=== PATIENT | female | born 1965 | race Caucasian/White ===

== ENCOUNTER → 2024-03-17 07:01 | Outpatient (REF) | payer OTHER, SELFPAY | LOC: RAD 07:01 | PROVIDERS: ATTENDING PHYSICIAN Family Medicine | DX: R74.8 Abnormal levels of other serum enzymes (principal) | CPT/HCPCS: 76700 ==

== ENCOUNTER → 2024-03-24 07:38 | Outpatient (REF) | payer OTHER, SELFPAY | LOC: WDC 07:38 | PROVIDERS: ATTENDING PHYSICIAN Obstetrics & Gynecology Gynecology; FAMILY PHYSICIAN Family Medicine | DX: Z12.31 Encounter for screening mammogram for malignant neoplasm of breast (principal) | CPT/HCPCS: 77063; 77067 ==

== ENCOUNTER → 2024-03-31 08:36 | Outpatient (REF) | payer OTHER, SELFPAY | LOC: WDC 08:36 | PROVIDERS: ATTENDING PHYSICIAN Obstetrics & Gynecology Gynecology; FAMILY PHYSICIAN Family Medicine | DX: R92.8 Other abnormal and inconclusive findings on diagnostic imaging of breast (principal) | CPT/HCPCS: 77065 ==

== ENCOUNTER → 2024-04-09 06:30 | Outpatient (REF) | payer OTHER, SELFPAY ==
--- NOTE | 2024-04-09 11:03 | OID.BR.INTR ---
[facility] Breast Navigator - Initial
- -
Date of Contact: 04/09/24
Met with patient. Patient given written information on navigator services and support services available at [facility]. Will follow up as needed per protocol.
== END ==
LOC: WDC 06:30
PROVIDERS: ATTENDING PHYSICIAN Obstetrics & Gynecology Gynecology; FAMILY PHYSICIAN Family Medicine
DX: N63.20 Unspecified lump in the left breast, unspecified quadrant (principal); R92.1 Mammographic calcification found on diagnostic imaging of breast
CPT/HCPCS: 88305; 19081; 76098; A4648

== ENCOUNTER → 2024-05-10 09:44 | Outpatient (REF) | payer OTHER, SELFPAY | LOC: WDC 09:44 | PROVIDERS: ATTENDING PHYSICIAN Surgery | DX: D05.02 Lobular carcinoma in situ of left breast (principal) | CPT/HCPCS: 19281; A4648 ==

== ENCOUNTER 2024-05-11 06:48 | Day surgery (SDC) | payer OTHER, SELFPAY ==
[2024-04-29 08:48] LABS: Hematocrit 39.5 % (37.0-47.0); Hemoglobin 13.5 g/dL (12.0-16.0); Mean Corp Hgb Conc. 34.2 g/dL (33.0-37.0); Mean Corpuscular Hgb 30.5 pg (27.0-31.0); Mean Corpuscular Volume 89.4 fL (81.0-99.0); Mean Platelet Volume 11.1 fL (7.4-10.4); Platelet Count 151 10^3/uL (130-400); Red Blood Cell Count 4.42 10^6/uL (4.20-5.40); Red Cell Dist. Width 11.9 % (11.5-14.5); White Blood Cell Count 2.9 10^3/uL (4.8-10.8)
[2024-04-29 09:20] LABS: ALT (SGPT) 52 U/L (0-35); AST (SGOT) 43 U/L (14-36); Albumin 4.3 g/dl (3.5-5.0); Alkaline Phosphatase 62 U/L (38-126); Blood Urea Nitrogen 10 mg/dl (7-17); Calcium 9.6 mg/dl (8.4-10.2); Carbon Dioxide 29 mmol/L (22-30); Chloride 100 mmol/L (98-107); Glucose 87 mg/dl (70-99); Potassium 4.4 mmol/L (3.5-5.1); Sodium 136 mmol/L (135-145); Total Bilirubin 0.6 mg/dl (0.2-1.3); Total Protein 6.3 g/dl (6.3-8.2); eGFR > 60.00
[2024-04-29 09:24] LABS: Prealbumin (Transthyretin) 24.1 mg/dl (17.6-36.0)
[2024-04-29 09:37] LABS: Vitamin D, 25-OH*** 61.1 ng/mL (30-80)
[2024-04-29 10:33] VITALS: BMI 20.2
--- NOTE | 2024-04-30 08:14 | PTCARENOTE ---
Patients 04/29 WBC 2.9Darcy Naik @ Dr. aPrker office notified
[2024-05-11 09:40] VITALS: BP 101/59
[2024-05-11] MEDS: NORMOSOL-R 1000 IV (09:50)
[2024-05-11] MEDS: TYLENOL 1000 MG PO (10:00)
[2024-05-11 10:03] VITALS: BMI 20.2
[2024-05-11 13:00] VITALS: BP 109/49
[2024-05-11 13:01] VITALS: BP 104/49
[2024-05-11 13:15] VITALS: BP 102/55
[2024-05-11 13:30] VITALS: BP 101/59
[2024-05-11 13:45] VITALS: BP 121/44
== END 2024-05-11 14:00 | disposition home or self-care (01) ==
LOC: SDS 06:48
PROVIDERS: ATTENDING PHYSICIAN Surgery; FAMILY PHYSICIAN Family Medicine; OTHER PHYSICIAN Obstetrics & Gynecology Gynecology
DX: D05.02 Lobular carcinoma in situ of left breast (principal)
CPT/HCPCS: 19301; 88305; 88307; 76098; 80053; 82306; 84134; 85027; 88341; 88342; 93005; A4648; L8000

== ENCOUNTER → 2024-10-22 18:57 | Outpatient (REF) | payer OTHER, SELFPAY | LOC: MRI 3T 18:57 | PROVIDERS: ATTENDING PHYSICIAN Surgery; FAMILY PHYSICIAN Family Medicine | DX: N28.1 Cyst of kidney, acquired (principal) | CPT/HCPCS: 74183; A9575 ==

== ENCOUNTER → 2025-03-28 16:29 | Outpatient (REF) | payer OTHER, SELFPAY | LOC: WDC 16:29 | PROVIDERS: ATTENDING PHYSICIAN Nurse Practitioner Adult Health; FAMILY PHYSICIAN Family Medicine | DX: Z12.31 Encounter for screening mammogram for malignant neoplasm of breast (principal) | CPT/HCPCS: 77063; 77067 ==

== ENCOUNTER → 2025-03-30 14:31 | Outpatient (REF) | payer OTHER, SELFPAY | LOC: RAD 14:31 | PROVIDERS: ATTENDING PHYSICIAN Internal Medicine Rheumatology; FAMILY PHYSICIAN Family Medicine | DX: M81.0 Age-related osteoporosis without current pathological fracture (principal) | CPT/HCPCS: 77080 ==